=== PATIENT | female | born 1930 ===

== ENCOUNTER → 2017-07-05 | Outpatient (REF) ==
[2017-07-05 12:36] LABS: CALCIUM 9.3 mg/dL (8.4-10.2); CREATININE, serum 0.97 mg/dL (0.52-1.25); POTASSIUM 4.7 mmol/L (3.4-5.0)
== END ==
LOC: ZCOL.LAB 11:53
PROVIDERS: Internal Medicine
DX: E87.5 Hyperkalemia (principal); E87.1 Hypo-osmolality and hyponatremia